=== PATIENT | female | born 1945 | race Caucasian/White ===

== ENCOUNTER → 2016-07-11 | Outpatient (CLI) | payer MEDICARE ==
--- NOTE | 2016-07-12 14:48 | EKG ---
Date Performed: 07/11/2016 Time Performed: 13:26:04 PTAGE: 70 years EKG: Sinus rhythm NONSPECIFIC T-WAVE ABNORMALITY BORDERLINE ECG NO PREVIOUS TRACING DOCTOR: Wisam Ley Interpretating Date/Time 07/12/2016 14:41:04
== END ==
LOC: HCAV 13:06
DX: I48.3 Typical atrial flutter (principal); R94.31 Abnormal electrocardiogram [ECG] [EKG]
CPT/HCPCS: 93005